=== PATIENT | female | born 1980 | race Caucasian/White ===

== ENCOUNTER 2019-01-21 14:25 | Emergency (ER) | payer OTHER ==
--- NOTE | 2019-03-22 08:30 | Diagnostic Imaging Report ---
MARY JANE SIMMS [facility] [id number] [facility] [address] [id number] Report Submission Date: Jan 21, 2019 3:08:53 PM CDT Patient Study Name: VALERY BARBA Date: Jan 21, 2019 2:45:13 PM CDT Modality Type: DX Gender: F Description: SHOULDER 2 VIEWS OR MORE : 82 Institution: [facility] Physician: MARY JANE SIMMS 2 views left scapula Clinical history: Trauma Findings: There is a midshaft left clavicle fracture with apex anterior angulation. There is a questionable lucency within the lateral aspect of the left scapula, indeterminate. This could reflect a small nondisplaced fracture. If further evaluation is indicated, CT could be obtained. Electronically signed on Jan 21, 2019 3:08:53 PM CDT by: Delano FOREMAN
== END 2019-01-21 15:39 ==
LOC: ED 14:25
DX: S42.022A Displaced fracture of shaft of left clavicle, initial encounter for closed fracture (principal); V80.010A Animal-rider injured by fall from or being thrown from horse in noncollision accident, initial encounter; Y93.52 Activity, horseback riding; Y92.9 Unspecified place or not applicable
CPT/HCPCS: 29240; 73030; 99283; L3660